=== PATIENT | male | born 1970 | race Caucasian/White ===

== ENCOUNTER 2017-02-28 16:15 | Emergency (ER) | payer MEDICAID ==
--- NOTE | 2017-02-28 16:55 | Emergency Department Record ---
History of Present Illness - General Chief complaint: Nausea, Vomiting, Diarrhea Stated complaint: ADOMINAL CRAMPS,DIARRHEA,VOMITTING Time Seen by Provider: 02/28/17 16:47 Source: Patient, RN notes reviewed Mode of Arrival: Ambulatory - History of Present Illness Initial comments: 2 days of abd pain and vomiting times 2 AND DIArrhea and periumbilical pain. PSH none PMH none soc his cigs one ppd and no history of alcohol since 21 years of age. pain is worse in the right lower quad with quarding rigidity and rebound MD complaint: Abdominal pain Onset/Timin -: Days(s) Description of Vomiting: Watery Associated Abdominal Pain: Yes Location: Diffuse Quality: Cramping Consistency: Intermittent Improves with: None Worsens with: None - Related Data Previous Rx's Medication Instructions Recorded Hydrocodone/Acetaminophen [[place] 1 each PO Q6HR #30 tablet 02/28/17 5-325 Tablet] Prednisone [Prednisone 10Mg] 10 mg PO ASDIR #30 tab 02/28/17 Allergies Allergy/AdvReac Type Severity Reaction Status Date / Time No Known Drug Allergies Allergy Verified 02/28/17 16:22 Travel Screening - Travel/Exposure Within Last 30 Days Have you traveled within the last 30 days?: No - Travel/Exposure Within Last Year Have you traveled outside the [place] in the last year?: No - Additonal Travel Details Have you been exposed to anyone with a communicable illness?: No - Travel Symptoms Symptom Screening: None Review of Systems Reviewed: No additional complaints except as noted below Constitutional: Reports: As per HPI. Denies: Chills, Fever, Malaise, Night sweats, Weakness, Weight change Eyes: Reports: As per HPI. Denies: Eye discharge, Eye pain, Photophobia, Vision change ENT: Reports: As per HPI. Denies: Congestion, Dental pain, Ear pain, Epistaxis , Hearing loss, Throat pain Respiratory: Reports: As per HPI. Denies: Cough, Dyspnea, Hemoptysis, Stridor, Wheezes Cardiovascular: Reports: As per HPI. Denies: Arrhythmia, Chest pain, Dyspnea on exertion, Edema, Murmurs, Orthopnea, Palpitations, Paroxysmal nocturnal dyspnea, Rheumatic Fever, Syncope Endocrine: Reports: As per HPI. Denies: Fatigue, Heat or cold intolerance, Polydipsia, Polyuria Gastrointestinal: Reports: As per HPI, Abdominal pain, Diarrhea, Vomiting. Denies: Constipation, Hematemesis, Hematochezia, Melena, Nausea Genitourinary: Reports: As per HPI. Denies: Dysuria, Frequency, Hematuria, Incontinence, Retention, Testicular pain, Testicular mass, Urgency Musculoskeletal: Reports: As per HPI. Denies: Arthralgia, Back pain, Gout, Joint swelling, Myalgia, Neck pain Skin: Reports: As per HPI. Denies: Bruising, Change in color, Change in hair/ nails, Lesions, Pruritus, Rash Neurological: Reports: As per HPI. Denies: Abnormal gait, Confusion, Headache, Numbness, Paresthesias, Seizure, Tingling, Tremors, Vertigo, Weakness Psychiatric: Reports: As per HPI. Denies: Anxiety, Auditory hallucinations, Depression, Homicidal thoughts, Suicidal thoughts, Visual hallucinations Hematological/Lymphatic: Reports: As per HPI. Denies: Anemia, Blood Clots, Easy bleeding, Easy bruising, Swollen glands Past Medical History - SOCIAL HISTORY Smoking Status: Current every day smoker Alcohol Use: None Drug Use Detail:: Marijuana - RESPIRATORY Hx Respiratory Disorders: No - CARDIOVASCULAR Hx Cardio Disorders: No - NEURO Hx Neuro Disorders: No - GI Hx GI Disorders: No - Hx Genitourinary Disorders: No - ENDOCRINE Hx Endocrine Disorders: No - MUSCULOSKELETAL Hx Musculoskeletal Disorders: No - PSYCH Hx Psych Problems: No - HEMATOLOGY/ONCOLOGY Hx Hematology/Oncology Disorders: No Family Medical History Any Significant Family History?: Yes Hx Anxiety: Mother Hx Depression: Mother Hx Diabetes: Brother/Sister Hx Heart Disease: Mother Physical Exam - General General Appearance: Alert, Oriented x3, Cooperative, Moderate distress - Head Head exam: Normal inspection - Eye Eye exam: Normal appearance, PERRL Pupils: Normal accommodation - ENT ENT exam: Normal exam, Mucous membranes moist, Normal external ear exam, Normal orophraynx, TM's normal bilaterally Ear exam: Normal external inspection. negative: External canal tenderness Nasal Exam: Normal inspection. negative: Discharge, Sinus tenderness Mouth exam: Normal external inspection, Tongue normal Teeth exam: Normal inspection. negative: Dental caries Throat exam: Normal inspection. negative: Tonsillar erythema, Tonsillar exudate - Neck Neck exam: Normal inspection, Full ROM. negative: Tenderness - Respiratory Respiratory exam: Normal lung sounds bilaterally. negative: Respiratory distress - Cardiovascular Cardiovascular Exam: Regular rate, Normal rhythm, Normal heart sounds - GI/Abdominal GI/Abdominal exam: Guarding, Rebound, Rigid, Tenderness - Rectal Rectal exam: Deferred - exam: Deferred - Extremities Extremities exam: Normal inspection, Full ROM, Normal capillary refill. negative: Tenderness - Back Back exam: Reports: Normal inspection, Full ROM. Denies: Muscle spasm, Rash noted, Tenderness - Neurological Neurological exam: Alert, Normal gait, Oriented X3, Reflexes normal - Psychiatric Psychiatric exam: Normal affect, Normal mood - Skin Skin exam: Dry, Intact, Normal color, Warm Course Vital Signs 02/28/17 16:23 Temperature 98.1 F Pulse Rate 73 Respiratory 20 Rate Blood Pressure 146/68 Pulse Ox 100 Medical Decision Making - Data Complexity MDM Data: Labs Ordered and/or Reviewed (lipase 77), X-Ray Ordered and/or Reviewed (CT of abd inflamatory changes of the illeum and appendix is normal lipase up slightly 77) - Lab Data Result diagrams: 02/28/17 17:13 02/28/17 17:13 Disposition Clinical Impression: Abdominal pain, right lower quadrant, Inflammatory bowel disease Disposition: Home, Self-Care Condition: (1) Good Instructions: Crohn Disease (ED) Additional Instructions: follow up with Gi Dr. follow up with family Dr in 2 weeks clear liquids for 24 hours and slowly increase diet Prescriptions: Hydrocodone/Acetaminophen [[place] 5-325 Tablet] 1 each PO Q6HR #30 tablet Prednisone [Prednisone 10Mg] 10 mg PO ASDIR #30 tab Forms: Patient Portal Access Time of Disposition: 18:54 Quality - Quality Measures Quality Measures: N/A - Blood Pressure Screening Does Patient Have Any of the Following: No Blood Pressure Classification: Hypertensive Reading Systolic Measurement: 146 Diastolic Measurement: 68 Screening for High Blood Pressure: < First Hypertensive BP, F/U Documented > [ G8950] First Hypertensive Follow-up Interventions: Referral to alternative/primary care provider.
[2017-02-28] MEDS ORDERED: 0.9 % SODIUM CHLORIDE 1,000 ML BAG IV ONE (16:56)
[2017-02-28] MEDS ORDERED: ONDANSETRON HCL IV 4 MG/2 ML VIAL IVP ONE (16:59)
[2017-02-28] MEDS ORDERED: HYDROMORPHONE HCL 1MG/ML **SYRINGE IVP ONE (16:59)
[2017-02-28 17:19] LABS: BASO % 0.4 % (0-6); EOS % 1.4 % (0-6); GRAN % 66.8 % (47-80); HEMATOCRIT 45.4 % (42.0-52.0); HEMOGLOBIN 15.9 gm/dl (14.0-18.0); LYMPH % 21.3 % (16-45); MEAN CELL VOLUME 86.6 fl (81-97); MEAN CORPUSCULAR HEMOGLOBIN 30.3 pg (27-33); MEAN PLATELET VOLUME 8.9 fl (7.4-10.4); MONO % 10.1 % (0-9); PLATELET COUNT 303 K/uL (130-400); RED BLOOD COUNT 5.24 M/uL (4.40-5.70); RED CELL DISTRIBUTION WIDTH 13.6 % (11.5-14.5); WHITE BLOOD COUNT W/O DIFF 10.7 K/uL (4.2-12.2)
[2017-02-28 17:32] LABS: ALBUMIN 4.2 g/dL (4.0-5.0); ALKALINE PHOSPHATASE 93 U/L (40-129); ALT/SGPT 6 U/L (<41); AMYLASE 41 U/L (28-100); AST/SGOT 12 U/L (10.0-50.0); BLOOD UREA NITROGEN 13 mg/dL (6-20); CREATININE 0.7 mg/dL (0.7-1.2); EST GLOMERULAR FILTRATION RATE > 60 mL/min; GLUCOSE,RANDOM 96 mg/dL (74-109); LIPASE 77 U/L (13-60); TOTAL PROTEIN 7.3 g/dL (6.6-8.7)
[2017-02-28 17:41] LABS: BILIRUBIN,DIRECT < 0.2 mg/dL (0-0.3)
[2017-02-28] MEDS ORDERED: METHYLPREDNISOLONE SOD 40MG/VIAL IVP ONE (18:41)
--- NOTE | 2017-03-02 08:10 | CT SCAN REPORT ---
EXAM: CT SCAN OF THE ABDOMEN AND PELVIS HISTORY: PATIENT HAS ABDOMINAL PAIN, VOMITING, AND DIARRHEA. TECHNIQUE: Serial axial CT scan of the abdomen and pelvis was performed at 3.75 mm intervals from the dome of the diaphragm down to the pubic symphysis without the use of intravenous or oral contrast. No comparison CT's are available. FINDINGS: The lung windows of the lung bases demonstrate no CT evidence of a focal infiltrate or pleural effusion. The visualized heart size and contour is within normal limits. The liver, spleen, pancreas, gallbladder, and adrenal glands are unremarkable. There is no CT evidence of hydronephrosis or hydroureter. No renal or ureteral calculi are noted. The contour and caliber of the noncontrasted abdominal aorta is within normal limits. There is no CT evidence of retroperitoneal, pelvic, or inguinal lymphadenopathy. The bowel gas pattern is nonobstructive. There is diffuse thickening of the distal small bowel wall extending to the terminal ileum. This finding is suggestive of inflammatory bowel disease. Clinical correlation for Crohn's is recommended. Mild free intraperitoneal fluid is noted. There is no CT evidence of free intraperitoneal air. There is mesenteric fat stranding with nonspecific subcentimeter lymph nodes within the central mesentery. I suspect these findings are likely reactive due to the inflammatory bowel process. The urinary bladder is unremarkable. Bone windows demonstrate no CT evidence of an acute fracture or dislocation of the visualized osseous structures of the abdomen and pelvis. IMPRESSION: FINDINGS SUSPICIOUS FOR INFLAMMATORY BOWEL DISEASE DISCUSSED ABOVE. CLINICAL CORRELATION IS RECOMMENDED. JOB NUMBER: [id number] MTDD
== END 2017-02-28 19:04 | disposition home or self-care (01) ==
LOC: ER 16:15
DX: K51.90 Ulcerative colitis, unspecified, without complications (principal); R10.11 Right upper quadrant pain; R11.2 Nausea with vomiting, unspecified; R19.7 Diarrhea, unspecified
CPT/HCPCS: 99284 ×2; 96374; 96375; 82150; 83690; 85025; 80076; 80048; 74176; J2405; J1170; J2920; J7030

== ENCOUNTER 2017-07-17 00:52 | Emergency (ER) | payer MEDICAID ==
[2017-07-17] MEDS ORDERED: ONDANSETRON 4 MG ODT TABLET SL ONE ×2 (00:58→01:18)
[2017-07-17] MEDS ORDERED: IBUPROFEN 400 MG TABLET PO ONE (00:58)
--- NOTE | 2017-07-17 01:03 | Emergency Department Record ---
History of Present Illness - General Chief complaint: Flu Like Symptoms Stated complaint: FLU LIKE SYMPTOMS Time Seen by Provider: 07/17/17 00:54 Source: Patient Mode of Arrival: Ambulatory Limitations: No limitations - History of Present Illness Initial comments: 46 yo male presents to ED for evaluation of nausea, vomiting, and body aches that began this afternoon. Patient denies taking any medications for his symptoms prior to arrival, denies abdominal pain or loose stools. Patient denies health problems at his baseline. MD Complaint: Generalized weakness Onset/Timin -: Hour(s) Location: Generalized Quality: Aching Consistency: Constant Improves with: None Worsens with: None Context: Recent illness Associated Symptoms: Nausea/vomiting - [place] Coma Scale Eye Response: (4) Open spontaneously Motor Response: (6) Obeys commands Verbal Response: (5) Oriented [place] Total: 15 - Related Data Previous Rx's Medication Instructions Recorded Ondansetron [Zofran Odt] 4 mg PO Q6H PRN #15 tab.rapdis 07/17/17 Allergies Allergy/AdvReac Type Severity Reaction Status Date / Time No Known Drug Allergies Allergy Verified 02/28/17 16:22 Review of Systems Constitutional: Reports: Chills, Malaise, Weakness. Denies: Fever, Night sweats Eyes: Denies: Eye discharge, Eye pain ENT: Reports: Congestion. Denies: Ear pain, Epistaxis Respiratory: Reports: Cough. Denies: Dyspnea Cardiovascular: Denies: Chest pain, Dyspnea on exertion, Edema Endocrine: Denies: Fatigue, Heat or cold intolerance Gastrointestinal: Reports: Nausea, Vomiting. Denies: Abdominal pain Genitourinary: Denies: Incontinence, Retention Musculoskeletal: Reports: Myalgia. Denies: Arthralgia, Back pain, Gout Skin: Denies: Bruising, Change in color Neurological: Reports: Headache. Denies: Abnormal gait, Confusion, Seizure Psychiatric: Denies: Anxiety Hematological/Lymphatic: Denies: Anemia, Blood Clots Past Medical History - SOCIAL HISTORY Smoking Status: Current every day smoker Drug Use Detail:: Marijuana - RESPIRATORY Hx Respiratory Disorders: No - CARDIOVASCULAR Hx Cardio Disorders: No - NEURO Hx Neuro Disorders: No - GI Hx GI Disorders: No - Hx Genitourinary Disorders: No - ENDOCRINE Hx Endocrine Disorders: No - MUSCULOSKELETAL Hx Musculoskeletal Disorders: No - PSYCH Hx Psych Problems: No - HEMATOLOGY/ONCOLOGY Hx Hematology/Oncology Disorders: No Family Medical History Hx Anxiety: Mother Hx Depression: Mother Hx Diabetes: Brother/Sister Hx Heart Disease: Mother Physical Exam - General General Appearance: Alert, Oriented x3, Cooperative, Mild distress Limitations: No limitations - Head Head exam: Atraumatic, Normocephalic, Normal inspection Head exam detail: negative: Abrasion, Contusion, Kay's sign, General tenderness, Hematoma, Laceration - Eye Eye exam: Normal appearance, Conjunctival injection. negative: Periorbital swelling, Periorbital tenderness, Scleral icterus - ENT Ear exam: negative: Auricular hematoma, Auricular trauma Nasal Exam: negative: Active bleeding, Discharge, Dried blood, Foreign body Mouth exam: negative: Drooling, Laceration, Muffled voice, Tongue elevation - Neck Neck exam: Normal inspection. negative: Meningismus, Tenderness - Respiratory Respiratory exam: Normal lung sounds bilaterally. negative: Rales, Respiratory distress, Rhonchi, Stridor - Cardiovascular Cardiovascular Exam: Regular rate, Normal rhythm, Normal heart sounds - GI/Abdominal GI/Abdominal exam: Soft. negative: Rebound, Rigid, Tenderness - Rectal Rectal exam: Deferred - exam: Deferred - Extremities Extremities exam: Normal inspection. negative: Calf tenderness, Pedal edema, Tenderness - Back Back exam: Denies: CVA tenderness (R), CVA tenderness (L) - Neurological Neurological exam: Alert, Normal gait, Oriented X3 - Psychiatric Psychiatric exam: Normal affect, Normal mood - Skin Skin exam: Normal color. negative: Abrasion Type of lesion: negative: abrasion Course - Reevaluation(s) Reevaluation #1: 07/17/17 01:15 Influenza: Negative Reevaluation #2: 07/17/17 01:19 Patient reassessed, declines CXR at this time, and reports that he would like to go home at this time with [place] for his nausea/vomiting symptoms. Patient' s vitals are stable and he appears stable for discharge at this time. Disposition Disposition: Discharge Clinical Impression: Nausea & vomiting Qualifiers: Vomiting type: unspecified Vomiting Intractability: non-intractable Qualified Code(s): R11.2 - Nausea with vomiting, unspecified Disposition: Home, Self-Care Condition: (2) Stable Instructions: Acute Nausea and Vomiting (ED) Additional Instructions: Return to ED if your symptoms worsen or if you have any concerns. Zofran as directed. Follow-up with your family doctor in 3-5 days as directed. Prescriptions: Ondansetron [Zofran Odt] 4 mg PO Q6H PRN #15 tab.rapdis PRN Reason: Nausea/Vomiting Forms: Patient Portal Access Time of Disposition: 01:03 Quality - Quality Measures Quality Measures: N/A - Blood Pressure Screening Does Patient Have Any of the Following: No Blood Pressure Classification: Pre-Hypertensive BP Reading Systolic Measurement: 144 Diastolic Measurement: 81 Screening for High Blood Pressure: < Pre-Hypertensive BP, F/U Documented > [ G8950] Pre-Hypertensive Follow-up Interventions: Referral to alternative/primary care provider.
[2017-07-17 01:15] LABS: INFLUENZA A NEGATIVE (NEGATIVE); INFLUENZA B NEGATIVE (NEGATIVE)
== END 2017-07-17 01:34 | disposition home or self-care (01) ==
LOC: ER 00:52
DX: R11.2 Nausea with vomiting, unspecified (principal); R53.1 Weakness; F17.210 Nicotine dependence, cigarettes, uncomplicated
CPT/HCPCS: 87400; 99282

== ENCOUNTER 2017-07-18 18:47 | Emergency (ER) | payer MEDICAID ==
[2017-07-18] MEDS ORDERED: ACETAMINOPHEN 325 MG TAB PO ONE (19:10)
--- NOTE | 2017-07-18 19:13 | Emergency Department Record ---
History of Present Illness - General Chief Complaint: Cough Stated Complaint: COUGH,FEVER Time Seen by Provider: 07/18/17 19:03 Source: Patient Mode of Arrival: Ambulatory Limitations: No limitations - History of Present Illness Initial Comments: The patient is here due to a 2-3 day hx of cough, fever, body aches, runny nose and a mild ROBERT. He did have some nausea and vomiting at the onset of this but that is better now. The patient was seen in the ER about 32 hours ago and had a neg flu test and did decline a CXR. He is now quite angry due to being more ill. MD Complaint: Cough, Fever, Nasal congestion, Rhinorrhea, Sore throat Onset/Timin -: Days(s) Severity: Moderate Consistency: Constant - Related Data Previous Rx's Medication Instructions Recorded Ondansetron [Zofran Odt] 4 mg PO Q6H PRN #15 tab.rapdis 07/17/17 Oseltamivir Phosphate [Tamiflu] 75 mg PO BID #10 capsule 07/18/17 Allergies Allergy/AdvReac Type Severity Reaction Status Date / Time No Known Drug Allergies Allergy Verified 07/18/17 18:54 Travel Screening - Travel/Exposure Within Last 30 Days Have you traveled within the last 30 days?: No - Travel/Exposure Within Last Year Have you traveled outside the [place] in the last year?: No - Additonal Travel Details Have you been exposed to anyone with a communicable illness?: No - Travel Symptoms Symptom Screening: None Review of Systems Constitutional: Reports: Chills, Fever, Malaise Eyes: Denies: Eye discharge ENT: Reports: Congestion Respiratory: Reports: Cough. Denies: Dyspnea Past Medical History - SOCIAL HISTORY Smoking Status: Current every day smoker Alcohol Use: None Drug Use Detail:: Methamphetamine - RESPIRATORY Hx Respiratory Disorders: No - CARDIOVASCULAR Hx Cardio Disorders: No - NEURO Hx Neuro Disorders: No - GI Hx GI Disorders: No - Hx Genitourinary Disorders: No - ENDOCRINE Hx Endocrine Disorders: No - MUSCULOSKELETAL Hx Musculoskeletal Disorders: No - PSYCH Hx Psych Problems: No - HEMATOLOGY/ONCOLOGY Hx Hematology/Oncology Disorders: No Family Medical History Any Significant Family History?: Yes Hx Anxiety: Mother Hx Depression: Mother Hx Diabetes: Brother/Sister Hx Heart Disease: Mother Physical Exam - General General Appearance: Alert, Oriented x3, Cooperative, No acute distress - Head Head exam: Atraumatic, Normocephalic, Normal inspection - Eye Eye exam: Normal appearance, PERRL - ENT Throat exam: Normal inspection. negative: Tonsillar erythema, Tonsillar exudate - Neck Neck exam: Normal inspection, Full ROM. negative: Tenderness - Respiratory Respiratory exam: Normal lung sounds bilaterally. negative: Respiratory distress - Cardiovascular Cardiovascular Exam: Regular rate, Normal rhythm, Normal heart sounds - GI/Abdominal GI/Abdominal exam: Soft, Normal bowel sounds. negative: Tenderness - Extremities Extremities exam: Normal inspection, Full ROM, Normal capillary refill. negative: Tenderness - Neurological Neurological exam: Alert. negative: Motor sensory deficit Course Vital Signs 07/18/17 18:56 Temperature 99.5 F Pulse Rate 67 Respiratory 20 Rate Blood Pressure 133/68 Pulse Ox 96 - Reevaluation(s) Reevaluation #1: The patient is doing very well. I did discuss the neg CXR and the positive flu test. He is to use the Tamiflu as directed and return to the ER for any worsening symptoms. 07/18/17 19:47 Medical Decision Making - Data Complexity MDM Data: Labs Ordered and/or Reviewed (Flu Pos. ), X-Ray Ordered and/or Reviewed (CXR: Neg.) Disposition Disposition: Discharge Clinical Impression: Influenza Disposition: Home, Self-Care Condition: (2) Stable Instructions: Influenza (ED) Additional Instructions: Please use Tylenol or Motrin for fever and body aches. Take the Tamiflu as directed. Please see your PCP if not better in 2 days and return to the ER for any worsening symptoms of fever, cough, or any trouble breathing. Prescriptions: Oseltamivir Phosphate [Tamiflu] 75 mg PO BID #10 capsule Forms: Patient Portal Access Time of Disposition: 19:46 Quality - Quality Measures Quality Measures: N/A - Blood Pressure Screening View Details: Yes Does Patient Have Any of the Following: No Blood Pressure Classification: Pre-Hypertensive BP Reading Systolic Measurement: 133 Diastolic Measurement: 68 Screening for High Blood Pressure: < Pre-Hypertensive BP, F/U Documented > [ G8950] Pre-Hypertensive Follow-up Interventions: Referral to alternative/primary care provider.
[2017-07-18 19:23] LABS: INFLUENZA A NEGATIVE (NEGATIVE); INFLUENZA B POSITIVE (NEGATIVE)
--- NOTE | 2017-07-20 08:19 | RADIOLOGY REPORT ---
EXAM: CHEST, TWO VIEWS HISTORY: COUGH AND FEVER FOR TWO DAYS. TECHNIQUE: Upright PA and lateral views of the chest were obtained. Comparison: None. FINDINGS: The heart is not enlarged and the pulmonary vasculature is nondilated. Minor biapical pleural and parenchymal scarring suggested, right slightly greater than left. The lungs and pleural spaces are otherwise clear. The osseous structures are intact. An old healed fracture deformity of the posterolateral right fifth rib is present. IMPRESSION: NO EVIDENCE OF ACUTE CARDIOPULMONARY DISEASE. MINOR BIAPICAL PLEURAL AND PARENCHYMAL SCARRING, RIGHT GREATER THAN LEFT. JOB NUMBER: [id number] [facility]
== END 2017-07-18 19:50 | disposition home or self-care (01) ==
LOC: ER 18:47
DX: J10.1 Influenza due to other identified influenza virus with other respiratory manifestations (principal); F17.210 Nicotine dependence, cigarettes, uncomplicated
CPT/HCPCS: 71046; 87400; 99283

== ENCOUNTER 2018-01-19 21:07 | Emergency (ER) | payer MEDICAID ==
[2018-01-19] MEDS ORDERED: IBUPROFEN 600 MG TABLET PO ONE (21:25)
--- NOTE | 2018-01-19 21:30 | Emergency Department Record ---
History of Present Illness - General Chief Complaint: Fall Injury Stated Complaint: FALL INJURY Time Seen by Provider: 01/19/18 21:16 Source: Patient Mode of Arrival: Ambulatory Limitations: No limitations - History of Present Illness Initial Comments: The patient is here due to L elbow pain. He was working on cutting down a tree and lost his balance and fell backwards onto his outstretched L arm injuring his elbow. Now he is having significant pain to the medial elbow area. There is no reported wrist or shoulder pain and the patient denies any other issues. MD Complaint: Other Onset/Timin -: Hour(s) When Fall Occurred: 1-3 hours [employer] Fall Witnessed: Yes, by bystander Place Fall Occurred: Other Loss of Consciousness: None Prolonged Down Time?: No Severity: Moderate Severity scale (1-10): 8 - Related Data Previous Rx's Medication Instructions Recorded Naproxen [Naprosyn] 500 mg PO BID #14 tablet. 01/19/18 Allergies Allergy/AdvReac Type Severity Reaction Status Date / Time No Known Drug Allergies Allergy Verified 07/18/17 18:54 Travel Screening - Travel/Exposure Within Last 30 Days Have you traveled within the last 30 days?: No Review of Systems Constitutional: Denies: Chills, Fever Eyes: Denies: Eye discharge ENT: Denies: Congestion Past Medical History - SOCIAL HISTORY Smoking Status: Current every day smoker Alcohol Use: None Drug Use: None - RESPIRATORY Hx Respiratory Disorders: No - CARDIOVASCULAR Hx Cardio Disorders: No - NEURO Hx Neuro Disorders: No - GI Hx GI Disorders: No - Hx Genitourinary Disorders: No - ENDOCRINE Hx Endocrine Disorders: No - MUSCULOSKELETAL Hx Musculoskeletal Disorders: No - PSYCH Hx Psych Problems: No - HEMATOLOGY/ONCOLOGY Hx Hematology/Oncology Disorders: No Family Medical History Any Significant Family History?: Yes Hx Anxiety: Mother Hx Depression: Mother Hx Diabetes: Brother/Sister Hx Heart Disease: Mother Physical Exam - General General Appearance: Alert, Oriented x3, Cooperative, No acute distress - Head Head exam: Atraumatic, Normocephalic, Normal inspection - Eye Eye exam: Normal appearance, PERRL - Extremities Extremities exam: Normal capillary refill, Tenderness (only at the medial epicondyle.). negative: Normal inspection (There is mild swelling at the medial epicondyle with tenderness.), Full ROM (There is decreased full flexion and extension due to pain.), Joint swelling - Neurological Neurological exam: negative: Motor sensory deficit (The L arm is NVI.) Course Vital Signs 01/19/18 21:14 Temperature 98.4 F Pulse Rate [ 68 Pulse Ox Probe] Respiratory 20 Rate Blood Pressure 160/77 [Right Arm] Pulse Ox 98 - Reevaluation(s) Reevaluation #1: I did discuss the issues with the patient and the need to keep the L arm in a sling until he can see a bone doctor next week. He is to be seen in the Specialty clinic if possible and if not he is to see his PCP for further evaluation and referral. 01/19/18 22:05 Medical Decision Making - Data Complexity MDM Data: X-Ray Ordered and/or Reviewed - Radiology Data Radiology results: Report reviewed (L Elbow: Avulsion off medial epicondyle.) Disposition Disposition: Discharge Clinical Impression: Avulsion fracture of bone Disposition: Home, Self-Care Condition: (2) Stable Instructions: Avulsion Fracture (ED) Additional Instructions: Please keep the L arm in the sling at all times and use Naprosyn for pain. Please see Dr. Molina in the Specialty clinic next week. If you are unable to be seen there please see your family doctor for Orthopedic referral. Prescriptions: Naproxen [Naprosyn] 500 mg PO BID #14 tablet. Referrals: [facility] Specialty Clinics [Provider Group] Forms: Patient Portal Access Time of Disposition: 22:07 Quality - Quality Measures Quality Measures: N/A - Blood Pressure Screening View Details: Yes Does Patient Have Any of the Following: No Blood Pressure Classification: Hypertensive Reading Systolic Measurement: 160 Diastolic Measurement: 77 Screening for High Blood Pressure: < First Hypertensive BP, F/U Documented > [ G8950] First Hypertensive Follow-up Interventions: Referral to alternative/primary care provider.
--- NOTE | 2018-01-21 10:43 | RADIOLOGY REPORT ---
EXAM: LEFT ELBOW HISTORY: FELL WHILE CUTTING WOOD SWELLING MEDIAL ELBOW AND PAIN THROUGHOUT ENTIRE ELBOW. TECHNIQUE: Four views of the left elbow were obtained. Comparison: None. Encounter: Initial. FINDINGS: There is a bony density adjacent to the medial epicondyle of the distal humerus measuring approximately 12.8 mm in length which is likely an avulsion fracture. There appears to be overlying soft tissue swelling. Elsewhere no additional fracture of the left elbow identified. Minor spurring at the elbow. There is probably slight displacement of the anterior fat pad consistent with a mild joint effusion. IMPRESSION: APPEARANCE CONSISTENT WITH AN AVULSION FRACTURE FRAGMENT ARISING FROM THE MEDIAL EPICONDYLE OF THE DISTAL HUMERUS WITH OVERLYING SOFT TISSUE SWELLING. JOB NUMBER: [id number] MTDD
== END 2018-01-19 22:28 | disposition home or self-care (01) ==
LOC: ER 21:07
DX: S42.442A Displaced fracture (avulsion) of medial epicondyle of left humerus, initial encounter for closed fracture (principal); W01.0XXA Fall on same level from slipping, tripping and stumbling without subsequent striking against object, initial encounter; Y93.H9 Activity, other involving exterior property and land maintenance, building and construction; F17.210 Nicotine dependence, cigarettes, uncomplicated
CPT/HCPCS: 99283

== ENCOUNTER 2018-01-29 08:58 | Day surgery (SDC) | payer MEDICAID ==
[~2018-01-29 08:58] MED LIST: ACETAMINOPHEN 1,000 MG/100 ML BTL IV ONE; CEFAZOLIN 2 Gram 2 GM/50 ML BAG IVPB ONE
[2018-01-29] MEDS ORDERED: ROPIVACAINE HCL (NAROPIN) /PF 5MG/ML 20ML VIAL IV ONE (08:59)
[2018-01-29] MEDS ORDERED: PROPOFOL 10 MG/ML VIAL IV ONE (08:59)
[2018-01-29] MEDS ORDERED: ONDANSETRON HCL IV 4 MG/2 ML VIAL IVP ONE (08:59)
[2018-01-29] MEDS ORDERED: LIDOCAINE 2% MDV (20MG/ML) 20ML VIAL IV ONE (08:59)
[2018-01-29] MEDS ORDERED: KETOROLAC 30 MG/ML VIAL IVP ONE (08:59)
[2018-01-29] MEDS ORDERED: SEVOFLURANE 250 ML INH ONE (08:59)
[2018-01-29] MEDS ORDERED: DEXAMETHASONE 4 MG/ML 1ML VIAL IVP ONE (08:59)
[2018-01-29] MEDS ORDERED: FENTANYL PF 100MCG/2ML VIAL IV ONE (08:59)
[2018-01-29] MEDS ORDERED: MIDAZOLAM HCL 2MG/2ML VIAL IV ONE (08:59)
--- NOTE | 2018-01-31 12:30 | Operative Note ---
DATE OF SURGERY: 01/29/2018 Surgeon: Fredo Molina DO PREOPERATIVE DIAGNOSIS: Fracture of the medial epicondyle of the left elbow. POSTOPERATIVE DIAGNOSIS: Fracture of the medial epicondyle of the left elbow. OPERATION: Open reduction and internal fixation of the left elbow. DESCRIPTION OF PROCEDURE: This 47-year-old male was taken to the operating room and placed in the supine position on the operating room table. General anesthetic was administered. The left upper extremity was elevated. It was prepped with Hibiclens and draped in the usual sterile fashion. It was exsanguinated and the tourniquet inflated to 250 mmHg. An incision was made on the medial aspect at the elbow centering over the medial epicondyle. Dissection was carried down through the skin and subcutaneous tissue. Hemostasis obtained with the electrocautery. Common extensor origin was easily identified with a bony attachment seen and a retracted and displaced position. The ulnar nerve was seen to be safely protected posterior to the fracture site, and it was not exposed nor was it disturbed. The fracture site at the distal humerus was cleaned of debris. Curet was use to curet the bony surface to healthy appearing bone. The same was performed with the bony fragment. The fragment was then held in position and pinned with a guidewire and the image intensifier was brought into the operative field to confirm the position and alignment of the guidewire. Once it was felt to be satisfactory, the drill was drilled over the guidewire and subsequently a 24-mm screw was advanced across the fracture fragment with a washer. This was sufficient to hold the fragment to its anatomic position. Stitches were placed reinforcing the screw fixation with suturing through the periosteum and tendinous origin. Once this was satisfactory, the wound was again irrigated with lactated Ringer's solution and the tendon was reapproximated with 2-0 Vicryl. The soft tissue was reapproximated with the same suture, 4-0 Vicryl was used to close the subcutaneous tissue and the skin with a running interlocking 4-0 nylon suture. The wound was sterilely dressed and the tourniquet released. It was well padded with Webril and a posterior splint was applied with both medial and lateral reinforcements. The patient was then awakened and taken to the recovery room in satisfactory condition. GROSS PATHOLOGY: This patient demonstrated an extracapsular medial epicondylar fracture which was treated with open reduction and internal fixation in the manner described above. A size 24 mm 4.0 cannulated screw was used with a washer (Synthes) to hold this into satisfactory position and alignment. CC: MD TOO Torres
== END 2018-01-29 13:05 | disposition home or self-care (01) ==
LOC: SUR 08:58
PROVIDERS: ATTEND Orthopaedic Surgery
DX: S42.442A Displaced fracture (avulsion) of medial epicondyle of left humerus, initial encounter for closed fracture (principal); F17.210 Nicotine dependence, cigarettes, uncomplicated
CPT/HCPCS: 24575; 01740; 64417; 76000; J1885; J2405; J3010; J0690; J2795; 76942

== ENCOUNTER 2018-08-26 18:46 | Emergency (ER) | payer MEDICAID ==
[2018-08-26] MEDS ORDERED: Diph,Pert(Acell),Tet Vac 0.5 ML SYR IM ONE (18:55)
--- NOTE | 2018-08-26 18:55 | Emergency Department Record ---
History of Present Illness - General Chief Complaint: Ankle/Foot Injury Stated Complaint: R FOOT/STEPPED ON A NAIL Time Seen by Provider: 08/26/18 18:48 Source: Patient Mode of Arrival: Ambulatory Limitations: No limitations - History of Present Illness Initial Comments: 47 yo male presents to ED for evaluation following a puncture wound to the right forefoot around 7 hours ago at work. Patient reports that he stepped on a nail, immediately removed the foot from the nail, but reports pain and soreness following the injury. Patient reports that his SO told him to come to the ED for an updated on his tetanus shot, denies taking anything for pain following his injury. Patient denies health problems at his baseline. MD Complaint: Foot injury Onset/Timin -: Hour(s) Injury: Foot: Right Type of Injury: Puncture wound Place: Work Severity: Moderate Improves With: Nothing Worsens With: Weight bearing - Related Data Previous Rx's Medication Instructions Recorded Naproxen [Naprosyn] 500 mg PO BID #14 tablet. 01/19/18 Cephalexin [Keflex] 500 mg PO QID #28 cap 08/26/18 Allergies Allergy/AdvReac Type Severity Reaction Status Date / Time No Known Drug Allergies Allergy Verified 07/18/17 18:54 Review of Systems Constitutional: Denies: Chills, Fever, Malaise, Night sweats Eyes: Denies: Eye discharge, Eye pain ENT: Denies: Congestion, Ear pain, Epistaxis Respiratory: Denies: Cough, Dyspnea Cardiovascular: Denies: Chest pain, Dyspnea on exertion Endocrine: Denies: Fatigue, Heat or cold intolerance Gastrointestinal: Denies: Abdominal pain, Nausea, Vomiting Genitourinary: Denies: Incontinence, Retention Musculoskeletal: Denies: Arthralgia, Back pain, Gout, Joint swelling Skin: Denies: Bruising, Change in color Neurological: Denies: Abnormal gait, Confusion, Headache Psychiatric: Denies: Anxiety Hematological/Lymphatic: Denies: Anemia, Blood Clots Past Medical History - SOCIAL HISTORY Smoking Status: Current every day smoker - RESPIRATORY Hx Respiratory Disorders: No - CARDIOVASCULAR Hx Cardio Disorders: No - NEURO Hx Neuro Disorders: No - GI Hx GI Disorders: No - Hx Genitourinary Disorders: No - ENDOCRINE Hx Endocrine Disorders: No - MUSCULOSKELETAL Hx Musculoskeletal Disorders: No - PSYCH Hx Psych Problems: No - HEMATOLOGY/ONCOLOGY Hx Hematology/Oncology Disorders: No Family Medical History Hx Anxiety: Mother Hx Depression: Mother Hx Diabetes: Brother/Sister Hx Heart Disease: Mother Physical Exam - General General Appearance: Alert, Oriented x3, Cooperative, Mild distress (Due to pain with ambulation) Limitations: No limitations - Head Head exam: Atraumatic, Normocephalic, Normal inspection Head exam detail: negative: Abrasion, Contusion, Kay's sign, General tenderness, Hematoma, Laceration - Eye Eye exam: Normal appearance. negative: Conjunctival injection, Periorbital swelling, Periorbital tenderness, Scleral icterus - ENT Ear exam: negative: Auricular hematoma, Auricular trauma Nasal Exam: negative: Active bleeding, Discharge, Dried blood, Foreign body Mouth exam: negative: Drooling, Laceration, Muffled voice, Tongue elevation - Neck Neck exam: Normal inspection. negative: Meningismus, Tenderness - Respiratory Respiratory exam: Wheezes. negative: Prolonged expiratory, Respiratory distress - Cardiovascular Cardiovascular Exam: Regular rate, Normal rhythm, Normal heart sounds - GI/Abdominal GI/Abdominal exam: Soft. negative: Distended, Rebound, Rigid, Tenderness - Rectal Rectal exam: Deferred - exam: Deferred - Extremities Extremities exam: Tenderness, Other (TTP at a puncture site located on the right plantar surface of the foot, forefoot region. No residual FB is present. No bleeding, no clinical signs of infection on examination.). negative: Calf tenderness, Pedal edema - Back Back exam: Denies: CVA tenderness (R), CVA tenderness (L) - Neurological Neurological exam: Alert, Normal gait, Oriented X3 - Psychiatric Psychiatric exam: Normal affect, Normal mood - Skin Skin exam: Normal color. negative: Abrasion Type of lesion: negative: abrasion Course - Reevaluation(s) Reevaluation #1: 08/26/18 19:00 Patient was seen and examined. No residual FB is present on examination, offered to perfor radiographs to be sure, patient declined. Will initiate antibiotic coverage with Keflexd, update the patient's tetanus status. Patient was instructed to soak the foot twice daily for 3 days, watch for increased pain, redness, swelling, or discharge from the puncture site and to return to ED for any of these signs. Patient verbalizes understanding of all instructions, appears stable for discharge at this time. Disposition Disposition: Discharge Clinical Impression: Puncture wound Disposition: Home, Self-Care Condition: (2) Stable Instructions: Puncture Wound (ED) Additional Instructions: Return to ED if your symptoms worsen or if you have any concerns. Keflex as directed. Follow-up with your family doctor in 3-5 days as directed. Prescriptions: Cephalexin [Keflex] 500 mg PO QID #28 cap Forms: Patient Portal Access Time of Disposition: 18:55 Quality - Quality Measures Quality Measures: N/A - Blood Pressure Screening Does Patient Have Any of the Following: Active Dx of HTN Blood Pressure Classification: Hypertensive Reading Systolic Measurement: 186 Diastolic Measurement: 106 Screening for High Blood Pressure: Patient Exclusion, Hx of HTN [G9744]
== END 2018-08-26 19:35 | disposition home or self-care (01) ==
LOC: ER 18:46
DX: S91.331A Puncture wound without foreign body, right foot, initial encounter (principal); W45.0XXA Nail entering through skin, initial encounter; Y99.0 Civilian activity done for income or pay; I10 Essential (primary) hypertension; F17.210 Nicotine dependence, cigarettes, uncomplicated
CPT/HCPCS: 90715; 96372; 99282; 99283

== ENCOUNTER 2019-01-30 01:31 | Emergency (ER) | payer MEDICAID ==
[2019-01-30] MEDS ORDERED: KETOROLAC 30 MG/ML VIAL IVP ONE (01:48)
[2019-01-30] MEDS ORDERED: DIAZEPAM (VALIUM) 5MG/ML **10ML VIAL IVP ONE (01:49)
--- NOTE | 2019-01-30 01:55 | Emergency Department Record ---
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 Pt works for a [employer]. Pt states the pain is local without radiation to buttock or leg. There is no numbness at this time to the leg but he does have issues with occasional numbness ot the left left describes as "like it is a sleep". He denies weakness or difficulty with gait. Pt has no urinary pain or hematuria noted. Pt is a difficult historian and somewhat argumentative. He quickly becomes angry with basic medical questions. relates a new doctor appointment February 04 to evaluate for weight loss. Pt is normally about 150# with max lifetime weight of 200#. He is eating with a good appetite but continues to lose weight. He is a smoker. He ahs no know hx of cancer. Onset/Timin -: Hour(s) Similar Symptoms Previously: Yes Place: Work Radiation: None Severity: Severe Severity scale (1-10): 10 Quality: Sharp Consistency: Constant Improves With: Walking Worsens With: Walking Context: Bending Treatment Prior to Arrival Comment:: aleve - Related Data Previous Rx's Medication Instructions Recorded Ibuprofen [Motrin 600Mg] 600 mg PO Q6H PRN #40 tablet 01/30/19 Metaxalone [Skelaxin] 800 mg PO TID PRN 7 Days #20 tablet 01/30/19 Allergies Allergy/AdvReac Type Severity Reaction Status Date / Time No Known Drug Allergies Allergy Verified 01/30/19 01:48 Travel Screening - Travel/Exposure Within Last 30 Days Have you traveled within the last 30 days?: No - Travel/Exposure Within Last Year Have you traveled outside the [place] in the last year?: No - Additonal Travel Details Have you been exposed to anyone with a communicable illness?: No - Travel Symptoms Symptom Screening: Joint & Muscle Aches Review of Systems Constitutional: Denies: Chills, Fever Eyes: Denies: Eye discharge, Photophobia ENT: Denies: Congestion Respiratory: Denies: Cough, Dyspnea Cardiovascular: Denies: Arrhythmia, Chest pain, Syncope Endocrine: Denies: Fatigue Gastrointestinal: Denies: Abdominal pain, Diarrhea, Nausea, Vomiting Genitourinary: Denies: Dysuria, Hematuria Musculoskeletal: Reports: As per HPI, Back pain. Denies: Neck pain Skin: Denies: Bruising, Rash Neurological: Denies: Headache, Seizure, Weakness Psychiatric: Denies: Anxiety, Suicidal thoughts Hematological/Lymphatic: Denies: Anemia Past Medical History - SOCIAL HISTORY Smoking Status: Current every day smoker Alcohol Use: None Drug Use: Heavy Drug Use Detail:: Marijuana - RESPIRATORY Hx Respiratory Disorders: No - CARDIOVASCULAR Hx Cardio Disorders: No - NEURO Hx Neuro Disorders: No - GI Hx GI Disorders: No - Hx Genitourinary Disorders: No - ENDOCRINE Hx Endocrine Disorders: No - MUSCULOSKELETAL Hx Musculoskeletal Disorders: No - PSYCH Hx Psych Problems: No - HEMATOLOGY/ONCOLOGY Hx Hematology/Oncology Disorders: No Family Medical History Any Significant Family History?: Yes Hx Anxiety: Mother Hx Depression: Mother Hx Diabetes: Brother/Sister Hx Heart Disease: Mother Physical Exam - General General Appearance: Alert, Oriented x3, Cooperative, Mild distress - Head Head exam: Atraumatic, Normocephalic - Eye Eye exam: PERRL, EOMI - ENT ENT exam: Mucous membranes moist Ear exam: Normal external inspection Nasal Exam: Normal inspection Mouth exam: Normal external inspection - Neck Neck exam: Normal inspection, Full ROM. negative: Lymphadenopathy, Tenderness - Respiratory Respiratory exam: Rhonchi. negative: Prolonged expiratory, Respiratory distress , Wheezes - Cardiovascular Cardiovascular Exam: Regular rate, Normal rhythm. negative: Tachycardia - GI/Abdominal GI/Abdominal exam: Soft, Normal bowel sounds. negative: Tenderness - Extremities Extremities exam: Normal inspection, Full ROM. negative: Joint swelling, Pedal edema - Back Back exam: Reports: CVA tenderness (L) (tender lower left back L4-5 without skin lesions. ). Denies: Paraspinal tenderness, Vertebral tenderness - Neurological Neurological exam: Alert, Normal gait, Oriented X3, Reflexes normal. negative: Motor sensory deficit - Psychiatric Psychiatric exam: Normal affect, Normal mood, Other (poor historian and uncooperative with basic questions. ) - Skin Skin exam: Normal color. negative: Rash Course Vital Signs 01/30/19 01:32 Temperature 97.8 F Pulse Rate [ 63 Pulse Ox Probe] Respiratory 24 Rate Blood Pressure 219/87 [Left Arm] Pulse Ox 98 - Reevaluation(s) Reevaluation #1: 01/30/19 01:57 Pt presents for back pain after lifting/bending at work. Relates weight loss a nd appears thin. Has appointment with [facility] physician to evaluate. We will initiate some laba nd XRay to assist in that evaluation. We will also treat his pain. Reevaluation #2: 01/30/19 02:42 Pt with a 20# weight loss from his lifetime average of 150#. Back pain today. Xray and labs normal. Has appointment with family doctor for weight loss. Labs and Xrays to be reviewed by her. Home with meds. Reevaluation #3: 01/30/19 02:48 Pain improved. Comfortable. Up and walked onto scale. Stable. Discussed plan. Medical Decision Making - Data Complexity MDM Data: Labs Ordered and/or Reviewed, X-Ray Ordered and/or Reviewed, Independent Visualization of Image, Tracing, or Specimen, Review and Summary of Old Record Discussed - Lab Data Result diagrams: 01/30/19 02:00 01/30/19 02:00 - Radiology Data Radiology results: Image reviewed -: Radiology Exam Interpreted by Myself CXR no acute process, Changes consistent with COPD Lumbar without fx as visualized. Disposition Disposition: Discharge Clinical Impression: Low back pain Qualifiers: Chronicity: acute Back pain laterality: left Sciatica presence: without sci atica Qualified Code(s): M54.5 - Low back pain Condition: (2) Stable Instructions: Low Back Strain (ED) Additional Instructions: Take medications as instructed. Ice to back Keep family doctor appointment. Return to the ED sooner if worse. Prescriptions: Ibuprofen [Motrin 600Mg] 600 mg PO Q6H PRN #40 tablet PRN Reason: Pain - Mild To Moderate (1-7) Metaxalone [Skelaxin] 800 mg PO TID PRN 7 Days #20 tablet PRN Reason: Muscle Spasms Forms: Patient Portal Access Time of Disposition: 02:43 Quality - Quality Measures Quality Measures: N/A - Blood Pressure Screening Does Patient Have Any of the Following: No Blood Pressure Classification: Pre-Hypertensive BP Reading Systolic Measurement: 219 Diastolic Measurement: 87 Screening for High Blood Pressure: < Pre-Hypertensive BP, F/U Documented > [G8950] Pre-Hypertensive Follow-up Interventions: Follow-up with rescreen every year.
[2019-01-30 02:09] LABS: ABSOLUTE NEUTROPHIL COUNT 3.25; BASO % 0.9 % (0-6); EOS % 6.8 % (0-6); GRAN % 46.2 % (47-80); HEMATOCRIT 42.8 % (42.0-52.0); HEMOGLOBIN 14.3 gm/dl (14.0-18.0); LYMPH % 31.9 % (16-45); MEAN CELL VOLUME 88.8 fl (81-97); MEAN CORPUSCULAR HEMOGLOBIN 29.7 pg (27-33); MEAN CORPUSCULAR HGB CONC 33.4 g/dl (32-36); MEAN PLATELET VOLUME 8.8 fl (7.4-10.4); MONO % 14.2 % (0-9); PLATELET COUNT 243 K/uL (130-400); RED BLOOD COUNT 4.82 M/uL (4.40-5.70); RED CELL DISTRIBUTION WIDTH 14.2 % (11.5-14.5)
[2019-01-30 02:14] LABS: URINE APPEARANCE CLEAR; URINE BILIRUBIN NEGATIVE (NEGATIVE); URINE BLOOD SMALL (NEGATIVE); URINE COLOR YELLOW; URINE GLUCOSE (UA) NEGATIVE (NEGATIVE); URINE KETONE NEGATIVE (NEGATIVE); URINE LEUKOCYTE ESTERASE NEGATIVE (NEGATIVE); URINE NITRITE NEGATIVE (NEGATIVE); URINE PROTEIN NEGATIVE (NEGATIVE); URINE UROBILINOGEN 0.2 E.U./dL (0.20 - 1.00)
[2019-01-30 02:20] LABS: BLOOD UREA NITROGEN 8 mg/dL (6-20); CREATININE 0.5 mg/dL (0.7-1.2); EST GLOMERULAR FILTRATION RATE > 60 mL/min; TOTAL PROTEIN 7.1 g/dL (6.6-8.7)
[2019-01-30 02:21] LABS: PARTIAL THROMBOPLASTIN TIME 26.6 SECONDS (24.5-39.1); PROTHROMBIN TIME (PATIENT) 10.6 SECONDS (9.5-12.1)
[2019-01-30 02:22] LABS: GLUCOSE,RANDOM 102 mg/dL (74-109)
[2019-01-30 02:22] LABS: URINE EPITHELIAL CELLS 0 - 2 (FEW); URINE RBC 0 - 2 (NONE SEEN); URINE WBC 0 - 2 (0-2/hpf)
[2019-01-30 02:25] LABS: ALB/GLOB RATIO 1.4 (1.1-1.8); ALBUMIN 4.1 g/dL (4.0-5.0); ALKALINE PHOSPHATASE 97 U/L (40-129); ALT/SGPT 9 U/L (<41); AST/SGOT 15 U/L (10.0-50.0); LDH 162 U/L (135-225)
--- NOTE | 2019-01-31 21:22 | RADIOLOGY REPORT ---
EXAM: CHEST 2 VIEWS HISTORY: COUGH AND DIFFICULTY IN BREATHING FOR ONE WEEK. TECHNIQUE: Upright PA and lateral views of the chest. COMPARISON: Two-view chest radiographic examination dated 07/18/2017. FINDINGS: The heart is not enlarged. No pulmonary venous hypertension is seen. The aortic knob is atherosclerotic. The lungs are hyperinflated consistent with COPD. Biapical pleural and parenchymal scarring, right greater than left, is grossly stable given differences in technique. No acute osseous abnormality. An old healed fracture deformity of the lateral right fifth rib is redemonstrated. IMPRESSION: 1. NO RADIOGRAPHIC EVIDENCE OF ACUTE CARDIOPULMONARY DISEASE WITHOUT SIGNIFICANT CHANGE SINCE 07/18/2017. 2. HYPERINFLATION OF THE LUNGS CONSISTENT WITH COPD. 3. BIAPICAL PLEURAL AND PARENCHYMAL SCARRING REDEMONSTRATED, RIGHT GREATER THAN LEFT. [facility]BER: [id number] [facility]
--- NOTE | 2019-01-31 21:29 | RADIOLOGY REPORT ---
EXAM: LUMBAR SPINE / AP LAT HISTORY: PAIN AND STIFFNESS IN LOWER BACK RADIATING INTO LEFT BUTTOCK AFTER BENDING OVER A FEW DAYS AGO. TECHNIQUE: AP and lateral views of the lumbar spine are obtained. COMPARISON: CT abdomen and pelvis without contrast dated 02/28/2017. FINDINGS: There are five [id number] lumbar-type vertebrae. There is mild dextroconvex curvature centered at the L2 level. Incompletely imaged levocurvature of the lower thoracic spine is also suspected. There is straightening of the normal lumbar lordosis. There is minimal retrolisthesis of L4 on L5. The vertebral bodies are otherwise normal in alignment. Minor anterior wedging of L3 appears stable. The vertebral body heights are otherwise unremarkable. Multilevel disc space narrowing is present with sparing at the L4-L5 level. Narrowing is most pronounced at the L5-S1 level, where it is moderate in degree. Multilevel degenerative endplate changes are identified, mild to moderate in degree. Bilateral facet arthropathy is suspected, most pronounced at the lower levels, where it is mild to moderate in degree. There is atherosclerotic calcification of the abdominal aorta without evidence of aneurysmal dilatation. 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 There are mild osteoarthritic changes of the hips. IMPRESSION: 1. NO ACUTE FRACTURE NOR SUSPICIOUS SUBLUXATION. 2. MULTILEVEL DEGENERATIVE CHANGES ASSOCIATED WITH MILD DEXTROCONVEX SCOLIOSIS CENTERED AT THE L2 LEVEL AND MINIMAL RETROLISTHESIS OF L4 ON L5. 3. DIFFUSE ATHEROSCLEROSIS. NO EVIDENCE OF ANEURYSMAL DILATATION OF THE ABDOMINAL AORTA. 4. 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 [facility]: [id number] [facility]
== END 2019-01-30 03:10 | disposition home or self-care (01) ==
LOC: ER 01:31
DX: G89.11 Acute pain due to trauma (principal); M54.5 Low back pain; R63.4 Abnormal weight loss; F17.210 Nicotine dependence, cigarettes, uncomplicated; X50.1XXA Overexertion from prolonged static or awkward postures, initial encounter; Y93.H9 Activity, other involving exterior property and land maintenance, building and construction; Y99.0 Civilian activity done for income or pay
CPT/HCPCS: 99284 ×2; 96374; 96375; 83615; 85025; 85730; 85610; 80053; 81001; 71046; 72100; G0103; J1885; J3360